=== PATIENT | male | born 1990 | race Hispanic/Latino ===

== ENCOUNTER 2018-12-10 05:41 | Emergency (ER) | payer BC, OTHER ==
[~2018-12-10] VITALS: Ht 167.6 cm; Wt 108.9 kg
[2018-12-10] MEDS ORDERED: DEXAMETHASONE SOD PHOS 10 MG/1 ML VIAL ONE (06:13)
[2018-12-10] MEDS ORDERED: DEXAMETHASONE SOD PHOS 10 MG/1 ML VIAL IM ONE (06:15)
== END 2018-12-10 06:25 | disposition home or self-care (01) ==
LOC: FSED 05:41
DX: L20.84 Intrinsic (allergic) eczema (principal); I10 Essential (primary) hypertension
CPT/HCPCS: 96372; 99282; J1100